=== PATIENT | female | born 1955 | race Caucasian/White ===

== ENCOUNTER → 2017-02-05 | Day surgery (SDC) | payer MEDICARE, BC ==
[~2017-02-05] MED LIST: BUPIVAC MPF-EPI 0.5%-1:200000 30 ML VIAL. ONE; BUPIVACAINE MPF 0.5% 30 ML VIAL. ONE
--- NOTE | 2017-02-05 18:13 | OP ---
DATE OF SURGERY: 02/05/2017 PREOPERATIVE DIAGNOSIS: Cyst, left neck. POSTOPERATIVE DIAGNOSIS: Cyst left neck. PROCEDURE: Excision of same. SPECIMEN: Skin and subcutaneous tissue, 1 x 1 x 0.5 cm. ANESTHESIA: Local. DESCRIPTION OF PROCEDURE: The patient brought to the minor surgery room, left neck prepped and draped in usual sterile fashion. An elliptical incision was outlined with a marking pen to include puncta and underlying process. A 0.5% Marcaine with epinephrine was infiltrated in the area skin incised and the skin and underlying process removed intact. Hemostasis with cautery. Wound closed with interrupted inverted 3-0 Vicryl in the subcutaneous tissue. Subcuticular 4-0 Monocryl with Steri-Strips for the skin. Sterile dressing applied. The patient was taken to the postoperative area in stable condition having tolerated the procedure well. MILAGROS SORIA MD DR: NANCY/hugo JOB#: [id number] / [id number]
--- NOTE | 2017-02-09 14:15 | PATHOLOGY ---
PATHOLOGY REPORT * * * * * * * * FINAL DIAGNOSIS: Segments of skin and subcutaneous tissue, neck cyst: - Pilomatricoma. COMMENT: The pilomatricoma is a benign skin adnexal tumor showing differentiation toward hair cells. There is no evidence of malignancy. (JPM:mmnba; 02/09/2017) REPORT ELECTRONICALLY SIGNED BY: John Simmons M.D. DATE/TIME: 02/09/2017 14:13 * * * * * * * * GROSS PATHOLOGY: Received in formalin labeled "Lenore Bradford, skin and subcutaneous tissue left neck" is a 1.8 x 1.5 x 0.5 cm aggregate of murray-yellow soft tissue. There is a firm palpable cyst measuring 0.8 x 0.5 x 0.3 cm. One of the portions has an ellipse of murray-white skin measuring 1.5 x 0.8 x 0.2 cm. The skin surface is grossly unremarkable. The specimen is submitted entirely in cassette A1, with the cyst and the skin portions bisected. [place] 02/08/2017[place] INITIAL CPT CODE(S): A; 85221 Professional services performed by [facility] at [address] [address] Technical services performed by [facility] at [address] [place] [address], [address], [place] [address]. SPECIMEN(S) RECEIVED: A.Skin and subcutaneous tissue left neck CLINICAL HISTORY: Neck cyst PATIENT: LENORE BRADFORD /AGE: 104/14/1955 (Age: 61) PATIENT #: [id number] ALT CASE #: SPECIMEN COLLECTION DATE: 02/05/2017 SPECIMEN RECEIVED DATE: 02/06/2017 [facility] - [address] [place] [address] - PHONE: [phone] * * * END OF REPORT * * *
== END | disposition home or self-care (01) ==
LOC: SURG 11:58
PROVIDERS: ATTEND Surgery
DX: D23.4 Other benign neoplasm of skin of scalp and neck (principal)
CPT/HCPCS: 11442; 88305; J3490; 11406

== ENCOUNTER → 2017-09-14 | Outpatient (CLI) | payer MEDICARE, BC ==
--- NOTE | 2017-09-15 16:20 | RAD ---
Indication: Screening mammogram Technique: 2-D and 3-D bilateral mammogram Comparison: Previous mammogram from 2017. Findings: Breast density category D: The breasts are extremely dense which reduces the sensitivity of the exam. The skin and nipples are within normal limits. Group of calcifications is seen in the medial aspect of the bilateral breasts best seen on cc view. There has been interval change in the morphology of the right breast calcifications. Left breast calcifications appear relatively stable. Impression: Bilateral medial breast calcifications. The calcifications in the right side are more worrisome than left. BI-RADS 0: Incomplete. Spot compression magnification views of the bilateral medial breasts on cc and ML view.
== END | disposition home or self-care (01) ==
LOC: MAMMO 12:52
PROVIDERS: ATTEND Physician Assistant Medical
DX: Z12.31 Encounter for screening mammogram for malignant neoplasm of breast (principal)
CPT/HCPCS: 77063; 77067

== ENCOUNTER → 2017-09-25 | Outpatient (CLI) | payer MEDICARE, BC ==
--- NOTE | 2017-09-25 14:00 | RAD ---
DATE: 09/25/2017 EXAM: DIGITAL DIAGNOSTIC BILATERAL HISTORY: Microcalcifications on screening study COMPARISON: 09/14/2017 This study was interpreted with the benefit of Computerized Aided Detection (CAD). The breast parenchyma is dense, which could reduce the sensitivity of mammography. Breast parenchyma level density D. FINDINGS: Additional views of both breasts were obtained and correlated with the 09/14/2017 exam. The grouping of microcalcifications in the right breast lies in the upper inner quadrant. These were present on an outside study from 07/21/2016 but have progressed slightly. There is no layering on the straight mediolateral view. The majority of these are smooth and have a fairly benign appearance. There is a cluster of 4 microcalcifications in the medial aspect of the left breast at the 9:00 location. These are smooth and have a benign appearance. They are unchanged since 07/21/2016. IMPRESSION: 1. Benign left microcalcifications. 2. Probably benign right breast microcalcifications. Follow-up right mammography in 6 months is suggested. BI-RADS CATEGORY: 3 PROBABLY BENIGN FINDING(S)-SHORT INTERVAL FOLLOW-UP SUGGESTED RECOMMENDED FOLLOW-UP: 6M 6 MONTH FOLLOW-UP PQRS compliance statement: Patient information was entered into a reminder system with a target due date for the next mammogram. Mammography is a sensitive method for finding small breast cancers, but it does not detect them all and is not a substitute for careful clinical examination. A negative mammogram does not negate a clinically suspicious finding and should not result in delay in biopsying a clinically suspicious abnormality. "Our facility is accredited by the [employer] Mammography Program."
== END | disposition home or self-care (01) ==
LOC: MAMMO 12:55
PROVIDERS: ATTEND Nurse Practitioner Family
DX: R92.8 Other abnormal and inconclusive findings on diagnostic imaging of breast (principal)
CPT/HCPCS: 77066

== ENCOUNTER → 2018-03-26 | Outpatient (CLI) | payer MEDICARE, BC ==
--- NOTE | 2018-03-29 08:43 | RAD ---
DATE: 03/26/2018 4:00 PM EXAM: MAMMO KHUSHBOO DIAG RT HISTORY: short-term imaging followup of a probably benign finding in the right breast. COMPARISON: 09/25/2017 Bilateral 3-D CC and MLO views of the right breast were obtained. In addition magnification views of the right breast were also obtained. This study was interpreted with the benefit of Computerized Aided Detection (CAD ). Breast Density: The breast parenchyma is dense, which could reduce the sensitivity of mammography. Breast parenchyma level density D. FINDINGS: Right breast calcifications are again seen, grossly stable in morphology. IMPRESSION: Right breast microcalcifications, findings for which short interval follow-up imaging is recommended BI-RADS CATEGORY: 3 PROBABLY BENIGN FINDING(S)-SHORT INTERVAL FOLLOW-UP SUGGESTED RECOMMENDED FOLLOW-UP: 6M 6 MONTH FOLLOW-UP. Follow-up full field digital tomographic CC and MLO views of the right breast and spot compression views in 6 months is recommended. PQRS compliance statement: Patient information was entered into a reminder system with a target due date 09/24/2017 for the next mammogram. Mammography is a sensitive method for finding small breast cancers, but it does not detect them all and is not a substitute for careful clinical examination. A negative mammogram does not negate a clinically suspicious finding and should not result in delay in biopsying a clinically suspicious abnormality. "Our facility is accredited by the [employer] Mammography [employer]." EVOND
== END | disposition home or self-care (01) ==
LOC: MAMMO 13:44
PROVIDERS: ATTEND Physician Assistant Medical
DX: R92.8 Other abnormal and inconclusive findings on diagnostic imaging of breast (principal); R92.0 Mammographic microcalcification found on diagnostic imaging of breast
CPT/HCPCS: 77065; G0279; 77061

== ENCOUNTER → 2018-07-08 | Outpatient (CLI) | payer MEDICARE, BC ==
[~2018-07-08] MED LIST changes: +ALBU2.5V8 IH; +ARIP15TA36 PO; +CLON1TAB11 PO; +ESZO3TAB28 PO; +FENO160T PO; +FLUT1DIS5 IH; +LEVO75TA5 PO; +LORA10TA68 PO; +OMEG1CAP2 PO; +OMEP40CA5 PO; +TRAZ-86 PO; +VENL75CA PO
[2018-07-08 13:02] VITALS: BP 119/76
--- NOTE | 2018-07-12 16:07 | PATHOLOGY ---
[facility] Accession Number: [id number] . 01 Material submitted: . NECK CYST . 01 Clinical history: . Neck cyst . 02 Diagnosis: Skin and subcutaneous tissue, neck cyst removal: - Calcifying epithelioma of Malherbe (Pilomatricoma). . (JPM:mm; 07/12/2018) [facility]/07/12/2018 . 02 Comment: The pilomatricoma is a benign tumor of the epidermal appendages with differentiation toward hair cells. The lesion appears excised. There is no evidence of malignancy. . (JPM:mml; 07/12/2018) . 02 Electronically signed: . John Simmons MD, Pathologist NPI- [id number] . 01 Gross description: . The specimen is received in formalin, labeled "Brenna Bradford, cyst neck". Received is a segment of yellow-murray lobulated tissue with attached pale murray skin measuring 1.1 x 1.0 x 0.9 cm in greatest dimensions. The surgical margin is inked. Sectioning reveals a unilocular cystic structure measuring 0.3 cm filled with a slight amount of light murray amorphous material. The specimen is submitted entirely in cassette A1. ([facility]AA; 07/09/2018) QAC/QAC . 02 Pathologist provided ICD-10: D23.4 . 02 CPT . 253457 Specimen Comment: A courtesy copy of this report has been sent to Specimen Comment: [phone], . Specimen Comment: Report sent to / DR PUTNAM Performed at: [address], [place], [place] [id number] MD Declan Ordonez MD Phone: [phone] Performed at: 02 [facility] [address] [place], [place] [id number] MD John Simmons MD Phone: [phone]
--- NOTE | 2018-07-12 16:25 | PDOC ---
BRIEF OPERATIVE NOTE Date: Jul 08, 2018 Pre-Op Diagnosis cyst, neck Post-Op Diagnosis same Procedure Performed excision Surgeon Nba Anesthesia Type: Local Blood Loss 2cc IV Fluid none Specimens Obtained 1x1x0.5 cm Findings cyst Complications none Additional Remarks # [id number] MILAGROS SORIA MD Jul 12, 2018 16:25
--- NOTE | 2018-07-12 17:58 | OP ---
DATE OF SURGERY: 07/08/2018 PREOPERATIVE DIAGNOSIS: Cyst neck. POSTOPERATIVE DIAGNOSIS: Cyst neck. PROCEDURE: Excision. SURGEON: Milagros Soria MD ANESTHESIA: Local. ESTIMATED BLOOD LOSS: 2 mL. SPECIMEN: Skin and subcutaneous nodule, 1 x 1 x 0.5 cm. DESCRIPTION OF PROCEDURE: The patient brought to the OR, the neck prepped and draped in usual sterile fashion. 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 Hemostasis with cautery. Wound closed with interrupted 4-0 Monocryl and Steri-Strips. Band-Aid applied. The patient was taken to the postop area in stable condition having tolerated the procedure well. MILAGROS SORIA MD DR: NANCY/nts JOB#: [id number] / [id number]
== END | disposition home or self-care (01) ==
LOC: SURG 11:36
PROVIDERS: ATTEND Surgery
DX: D23.4 Other benign neoplasm of skin of scalp and neck (principal); Z88.0 Allergy status to penicillin; E03.9 Hypothyroidism, unspecified; E78.5 Hyperlipidemia, unspecified; J44.9 Chronic obstructive pulmonary disease, unspecified; F32.9 Major depressive disorder, single episode, unspecified; F39 Unspecified mood [affective] disorder; F41.9 Anxiety disorder, unspecified; Z90.710 Acquired absence of both cervix and uterus; Z98.890 Other specified postprocedural states; Z87.891 Personal history of nicotine dependence; Z72.89 Other problems related to lifestyle; Z79.899 Other long term (current) drug therapy
CPT/HCPCS: 11421; 88305; J3490; 11442

== ENCOUNTER → 2018-09-29 | Outpatient (CLI) | payer MEDICARE, BC ==
[2018-07-08 13:02] VITALS: BP 119/76
[~2018-09-29] MED LIST changes: -BUPIVAC MPF-EPI 0.5%-1:200000 30 ML VIAL. ONE; -BUPIVACAINE MPF 0.5% 30 ML VIAL. ONE
--- NOTE | 2018-09-30 09:44 | RAD ---
DATE: 09/29/2018 EXAM: MAMMO KHUSHBOO COLEEN GAGNONAT HISTORY: Follow-up calcifications COMPARISON: 03/26/2018, 09/25/2017, 09/14/2017 This study was interpreted with the benefit of Computerized Aided Detection (CAD). Breast Density: DENSE The breast parenchyma is dense, which could reduce the sensitivity of mammography. Breast parenchyma level density D. FINDINGS: 2-D and 3-D tomosynthesis imaging was performed in CC and MLO projections. No new or enlarging breast densities are seen. There are microcalcifications in both breasts. On the right there is a cluster projected medially as well as an additional faint cluster projected near the midline. On the left there is a cluster medially. These appear unchanged. No malignant type microcalcifications warranting biopsy are seen. IMPRESSION: Stable bilateral microcalcifications. Continued mammographic surveillance consisting of right mammography in 6 months and bilateral mammography at one year is suggested. BI-RADS CATEGORY: 3 PROBABLY BENIGN FINDING(S)-SHORT INTERVAL FOLLOW-UP SUGGESTED RECOMMENDED FOLLOW-UP: 6M 6 MONTH FOLLOW-UP PQRS compliance statement: Patient information was entered into a reminder system with a target due date for the next mammogram. Mammography is a sensitive method for finding small breast cancers, but it does not detect them all and is not a substitute for careful clinical examination. A negative mammogram does not negate a clinically suspicious finding and should not result in delay in biopsying a clinically suspicious abnormality. "Our facility is accredited by the [employer] Mammography Program."
== END | disposition home or self-care (01) ==
LOC: MAMMO 12:41
PROVIDERS: ATTEND Physician Assistant Medical
DX: R92.1 Mammographic calcification found on diagnostic imaging of breast (principal)
CPT/HCPCS: 77066; G0279; 77062

== ENCOUNTER → 2019-03-25 | Outpatient (CLI) | payer MEDICARE, BC ==
[2018-07-08 13:02] VITALS: BP 119/76
[~2019-03-25] MED LIST changes: +OMEP40CA45 PO; -OMEP40CA5 PO
--- NOTE | 2019-03-25 13:46 | RAD ---
DATE: March 25, 2019 EXAM: MAMMO KHUSHBOO DIAG RT 3-D HISTORY: Follow-up calculations of the right breast. COMPARISON: September 29, 2018 and September 14, 2017 and September 23, 2017. This study was interpreted with the benefit of Computerized Aided Detection (CAD). 2-D digital mammographic views of the right breast were performed in the CC and MLO projections. 3-D digital tomosynthesis images of right breast were performed in the CC and MLO projections and reviewed on a computer workstation. FINDINGS: Breast Density: DENSE The breast parenchyma is dense, which could reduce the sensitivity of mammography. Breast parenchyma level density D.. Again seen is a group of calcifications posteriorly centrally within the right breast in the CC projection. Again seen is a group of calcifications located medially in the CC view and at nipple level in the MLO projection of the right breast. These are stable. No new abnormality. IMPRESSION: Stable calcifications of the right breast. Recommend bilateral 3-D mammography in 6 months. BI-RADS CATEGORY: 3 PROBABLE BENIGN-SHORT TERM F/U RECOMMENDED FOLLOW-UP: 6M 6 MONTH FOLLOW-UP PQRS compliance statement: Patient information was entered into a reminder system with a target due date September 24, 2019 for the next mammogram. Mammography is a sensitive method for finding small breast cancers, but it does not detect them all and is not a substitute for careful clinical examination. A negative mammogram does not negate a clinically suspicious finding and should not result in delay in biopsying a clinically suspicious abnormality. "Our facility is accredited by the [employer] Mammography Program." The patient's breast density may affect the ability of mammography to detect breast cancer. There are 4 categories of breast density, A, B, C and D. Breast density A means that most of the breast tissue is replaced with adipose tissue and therefore is not dense. Breast density B means that the breast tissue is mildly dense and scattered. Breast density C means that the breast tissue is heterogeneously dense. Breast density D means that the breast tissue is very dense. Breast densities especially C and D may decrease the sensitivity of mammography to detect breast cancer. Therefore, the patient may benefit from 3-D breast mammography (3D breast tomography) as a part of their screening mammogram. Insurance may or may not pay for this additional imaging. The patient's breast density based on today's mammogram is category D.
== END | disposition home or self-care (01) ==
LOC: MAMMO 13:00
PROVIDERS: ATTEND Physician Assistant Medical
DX: N64.89 Other specified disorders of breast (principal)
CPT/HCPCS: 77065; G0279; 77061

== ENCOUNTER → 2019-09-19 | Outpatient (CLI) | payer MEDICARE, BC ==
[2018-07-08 13:02] VITALS: BP 119/76
[~2019-09-19] MED LIST changes: +TRAZ-125 PO; -TRAZ-86 PO
--- NOTE | 2019-09-19 15:01 | RAD ---
DATE: 09/19/2019 2:00 PM EXAM: MAMMO KHUSHBOO COLEEN GAGNONAT HISTORY: Six-month follow-up probably benign right breast calcifications. Patient is due for screening. COMPARISON: Mammograms of 04/02/2019, 09/29/2018, 09/25/2017 and 07/21/2016. TECHNIQUE: Bilateral CC and MLO views of the breasts were performed. Bilateral breast tomosynthesis was performed in CC and MLO projections. In addition, magnification views of the right breast in the CC and ML projections were obtained. This study was interpreted with the benefit of Computerized Aided Detection (CAD). FINDINGS: Breast Density: HETERO The breast parenchyma Is heterogeneously dense, which could reduce sensitivity of mammography. Breast parenchyma level C Clusters of calcifications in both breasts are again identified with the cluster of calcifications in the central posterior right breast of interest representing a loose cluster of calcifications or periphery of a lucent centered nodule, suggesting a hyalinizing fibroadenoma. No findings suspicious for malignancy. No suspicious masses, microcalcifications or architectural distortion is present to suggest malignancy in either breast. The visualized axillae are unremarkable. IMPRESSION: No mammographic evidence of malignancy. BI-RADS CATEGORY: 2 BENIGN FINDING(S) RECOMMENDED FOLLOW-UP: 12M 12 MONTH FOLLOW-UP Annual screening mammography is recommended, unless clinically indicated sooner based on symptoms or change in physical exam. PQRS compliance statement: Patient information was entered into a reminder system with a target due date 09/19/2020 for the next mammogram. Mammography is a sensitive method for finding small breast cancers, but it does not detect them all and is not a substitute for careful clinical examination. A negative mammogram does not negate a clinically suspicious finding and should not result in delay in biopsying a clinically suspicious abnormality. "Our facility is accredited by the [employer] Mammography Program."
== END ==
LOC: MAMMO 13:32
PROVIDERS: ATTEND Physician Assistant Medical
DX: R92.1 Mammographic calcification found on diagnostic imaging of breast (principal)
CPT/HCPCS: 77066; G0279; 77062

== ENCOUNTER → 2020-09-24 | Outpatient (CLI) | payer MEDICARE, BC ==
[2018-07-08 13:02] VITALS: BP 119/76
[~2020-09-24] MED LIST changes: -OMEP40CA45 PO; +OMEP40CA7 PO
--- NOTE | 2020-09-24 17:24 | RAD ---
DATE: 09/24/2020 EXAM: MAMMO KHUSHBOO SCREENING BILATERAL HISTORY: Screening COMPARISON: Multiple prior exams including 09/19/2019, 03/25/2019, 09/29/2018, 03/26/2018, 09/25/2017, 09/14/2017 This study was interpreted with the benefit of Computerized Aided Detection (CAD). Breast Density: HETERO The breast parenchyma is heterogenously dense, which could reduce sensitivity of mammography. Breast parenchyma level C. FINDINGS: There are benign-appearing calcifications bilaterally. No mass, suspicious calcification, or architectural distortion in either breast. IMPRESSION: No evidence of malignancy. BI-RADS CATEGORY: 2 BENIGN FINDING(S) RECOMMENDED FOLLOW-UP: 12M 12 MONTH FOLLOW-UP PQRS compliance statement: Patient information was entered into a reminder system with a target due date for the next mammogram. Mammography is a sensitive method for finding small breast cancers, but it does not detect them all and is not a substitute for careful clinical examination. A negative mammogram does not negate a clinically suspicious finding and should not result in delay in biopsying a clinically suspicious abnormality. "Our facility is accredited by the [employer] Mammography Program."
== END ==
LOC: MAMMO 13:47
PROVIDERS: ATTEND Physician Assistant Medical
DX: Z12.31 Encounter for screening mammogram for malignant neoplasm of breast (principal)
CPT/HCPCS: 77063; 77067

== ENCOUNTER → 2021-02-04 | Outpatient (CLI) | payer MEDICARE, BC ==
[2018-07-08 13:02] VITALS: BP 119/76
--- NOTE | 2021-02-04 16:07 | RAD ---
XR CHEST 2V 02/04/2021 Reason: COUGH Comparison: None Technique: Frontal and lateral radiographs of the chest Findings: There is increased reticular and patchy opacity in the area of the lingula. No pleural effusion or pn eumothorax. Cardiomediastinal silhouette is within normal limits. No pulmonary vascular redistributio n. No acute osseous abnormality Impression: Increased opacity at the lingula may represent early or developing airspace disease. Electronically signed by: Chidi Norman (02/04/2021 4:05 PM) [id number]
== END ==
LOC: RAD 11:45
PROVIDERS: ATTEND Physician Assistant Medical
DX: R91.8 Other nonspecific abnormal finding of lung field (principal); R05.9 Cough, unspecified
CPT/HCPCS: 71046

== ENCOUNTER → 2021-02-19 | Outpatient (CLI) | payer MEDICARE, BC ==
[2018-07-08 13:02] VITALS: BP 119/76
--- NOTE | 2021-02-19 11:31 | RAD ---
CT THORAX WO INDICATION: PULMONARY NODULE, [id number] YRS, 2PACK A DAY COMPARISON STUDY: Chest radiograph 02/04/2021. CT 11/01/2014 TECHNIQUE: Unenhanced axial images were obtained through the lungs and upper abdomen. Coronal and sa gittal multiplanar reconstructions were also obtained. PQRS compliance statement: One or more of the following individualized dose reduction techniques were utilized for this examinat ion: 1. Automated exposure control 2. Adjustment of the mA and/or kV according to patient size 3. Use of iterative reconstruction technique FINDINGS: Lungs and Airways: Opacity in the left upper lobe with a somewhat linear morphology and slight retrac tion of the oblique fissure. Additional smaller opacity in the right upper lobe with some retraction of the minor fissure. Biapical subpleural fibrosis. Normal central airways. Pleura: The pleural spaces are normal. Heart and Mediastinum: The visualized thyroid gland is normal in size and attenuation. No axillary or supraclavicular lymphadenopathy. No mediastinal, hilar or retrocrural lymphadenopathy. Normal cardia c size. No pericardial effusion. Coronary artery atherosclerotic disease. The great vessels of the th orax are normal. Abdomen: The visualized abdominal organs demonstrate no abnormality. Bones and Soft Tissues: The visualized skeletal structures and soft tissues of the chest wall are wit hin normal limits. IMPRESSION: Focal opacities in the left upper lobe and right upper lobe. Although imaging features suggest subseg mental atelectasis or scar, a 3-6 month follow-up CT chest is recommended to establish stability. Electronically signed by: Leo Berman MD (02/19/2021 11:29 AM) [id number]
== END ==
LOC: CT 10:26
PROVIDERS: ATTEND Physician Assistant Medical
DX: J84.10 Pulmonary fibrosis, unspecified (principal); I25.10 Atherosclerotic heart disease of native coronary artery without angina pectoris; R91.1 Solitary pulmonary nodule
CPT/HCPCS: 71250